=== PATIENT | female | born 1965 | race African-American/Black ===

== ENCOUNTER 2016-09-28 14:49 | Emergency (ER) | payer OTHER ==
[~2016-09-28] VITALS: Ht 167.6 cm; Wt 73.6 kg
[~2016-09-28 14:49] MED LIST: AMLO-511 PO; HYDR-3965 PO; IBUP-1547 PO; TRAM50TA4 PO
[2016-09-28] MEDS ORDERED: DICL30AD PO (15:29)
[2016-09-28] MEDS ORDERED: HYDR25TA PO (15:29)
[2016-09-28] MEDS ORDERED: DIPH12.54 PO (15:29)
[2016-09-28] MEDS ORDERED: HYDR1LIQ5 PO (15:29)
[2016-09-28] MEDS ORDERED: CYCL10 PO (15:29)
[2016-09-28] MEDS ORDERED: METO-296 PO (15:29)
[2016-09-28] MEDS ORDERED: KETOROLAC TROMETHAMINE 60 MG/2 ML VIAL IM ONE (15:45)
[2016-09-28 16:59] LABS: APPEARANCE,URINE CLEAR (CLEAR); GLUCOSE, URINE (UA) NEGATIVE (NEGATIVE); KETONES,URINE NEGATIVE (NEGATIVE); LEUKOCYTE ESTERASE ,URINE NEGATIVE (NEGATIVE); OCCULT BLOOD,URINE NEGATIVE (NEGATIVE); PROTEIN,URINE NEGATIVE (NEGATIVE)
[2016-09-28 17:00] LABS: ADD UA MICROSCOPIC NO
[2016-09-28 18:18] VITALS: BP 131/72
== END 2016-09-28 18:19 | disposition home or self-care (01) ==
LOC: EMS 14:50
DX: S16.1XXA Strain of muscle, fascia and tendon at neck level, initial encounter (principal); I10 Essential (primary) hypertension; F17.210 Nicotine dependence, cigarettes, uncomplicated; Z88.6 Allergy status to analgesic agent; Z88.5 Allergy status to narcotic agent; V49.9XXA Car occupant (driver) (passenger) injured in unspecified traffic accident, initial encounter; Y93.89 Activity, other specified; Y92.89 Other specified places as the place of occurrence of the external cause; Y99.8 Other external cause status
CPT/HCPCS: 72040; 72070; 73110; 81003; 96374; 99285; J1885